=== PATIENT | female | born 1985 | race Caucasian/White ===

== ENCOUNTER 2017-04-11 10:52 | Observation (INO) | payer SELFPAY ==
[~2017-04-11] VITALS: Ht 162.6 cm; Wt 53.5 kg
[~2017-04-11 10:52] MED LIST: FERR-63 PO; IBUP-1649 PO; MULT-1146 PO
[2017-04-11 12:10] LABS: CLARITY URINE CLEAR (CLEAR); COLOR URINE YELLOW (YELLOW); GLUCOSE URINE NEGATIVE (NEGATIVE); KETONES URINE NEGATIVE (NEGATIVE); LEUKOCYTE ESTERASE URINE NEGATIVE (NEGATIVE); NITRITE URINE NEGATIVE (NEGATIVE); OCCULT BLOOD URINE NEGATIVE (NEGATIVE); PH URINE 6.5 (4.5-8.0); PROTEIN URINE NEGATIVE (NEGATIVE)
== END 2017-04-11 13:00 | disposition home or self-care (01) ==
LOC: L&D 10:52
PROVIDERS: ADMIT Obstetrics & Gynecology; ATTEND Obstetrics & Gynecology
DX: O26.893 Other specified pregnancy related conditions, third trimester (principal); R39.198 Other difficulties with micturition; Z3A.37 37 weeks gestation of pregnancy
CPT/HCPCS: 81003; 99281; G0378

== ENCOUNTER 2020-05-08 11:12 | Emergency (ER) | payer SELFPAY ==
[~2020-05-08] VITALS: Ht 162.6 cm; Wt 48.0 kg
[~2020-05-08 11:12] MED LIST changes: -IBUP-1649 PO
[2020-05-08] MEDS: HYDROCODONE/ACETAMINOPHEN 5/325MG TABLET PO ONE (13:09)
[2020-05-08 14:12] VITALS: BP 118/78
== END 2020-05-08 14:13 | disposition home or self-care (01) ==
LOC: ER 11:12
DX: S20.211A Contusion of right front wall of thorax, initial encounter (principal); S43.491A Other sprain of right shoulder joint, initial encounter; Y08.89XA Assault by other specified means, initial encounter; Y93.89 Activity, other specified; Y92.89 Other specified places as the place of occurrence of the external cause; Y99.8 Other external cause status; Z98.890 Other specified postprocedural states
CPT/HCPCS: 71101; 73030; 93005; 99284

== ENCOUNTER 2020-09-12 15:25 | Emergency (ER) | payer SELFPAY ==
[~2020-09-12] VITALS: Ht 162.6 cm; Wt 59.0 kg
[2020-09-12] MEDS ORDERED: TETANUS, DIPHTHERIA, PERTUSSIS VAC/PF 0.5ML (>7YR OLD) IM ONE (16:15)
[2020-09-12] MEDS ORDERED: BACITRACIN ZINC OINT UDPKT TOP ONE (16:15)
[2020-09-12] MEDS ORDERED: LIDOCAINE HCL/PF 1% 10 MG/ML 5ML VIAL IJ ONE (16:15)
[2020-09-12] MEDS ORDERED: IBUPROFEN 400MG TABLET PO ONE (16:30)
[2020-09-12] MEDS ORDERED: IBUP-2028 MT (17:53)
[2020-09-12 18:34] VITALS: BP 118/80
== END 2020-09-12 18:37 | disposition home or self-care (01) ==
LOC: ER 15:54
DX: S61.211A Laceration without foreign body of left index finger without damage to nail, initial encounter (principal); W26.8XXA Contact with other sharp object(s), not elsewhere classified, initial encounter; Y93.89 Activity, other specified; Y92.89 Other specified places as the place of occurrence of the external cause; Z23 Encounter for immunization
CPT/HCPCS: 12001; 90471; 90715; 99283; J3490

== ENCOUNTER 2020-09-14 11:28 | Emergency (ER) | payer SELFPAY ==
[~2020-09-14] VITALS: Ht 162.6 cm; Wt 53.0 kg
[~2020-09-14 11:28] MED LIST changes: +IBUP-2028 MT
[2020-09-14 12:52] VITALS: BP 115/69
== END 2020-09-14 12:52 | disposition home or self-care (01) ==
LOC: ER 12:00
DX: Z48.00 Encounter for change or removal of nonsurgical wound dressing (principal)
CPT/HCPCS: 99281

== ENCOUNTER 2021-05-17 12:30 | Emergency (ER) | payer MEDICAID ==
[~2021-05-17] VITALS: Ht 162.6 cm; Wt 51.0 kg
[2021-05-17 12:40] VITALS: BP 117/79
[2021-05-17 13:26] LABS: CHLORIDE 108 mEq/L (98-107)
[2021-05-17 13:27] LABS: BASOPHILS % 0.9 % (0.0-2.0); EOSINOPHILS % 1.6 % (0.0-5.0); HEMATOCRIT. 37.2 % (36.0-48.0); HEMOGLOBIN. 12.3 g/dL (12.0-16.0); LYMPHOCYTES % 25.6 % (20.0-50.0); MEAN CORPUSCULAR HEMOGLOBIN 30.2 pg (28.0-32.0); MEAN CORPUSCULAR VOLUME 91.3 fL (81.0-99.0); MEAN PLATELET VOLUME 7.1 fl (7.4-10.4); MONOCYTES % 6.3 % (2.0-8.0); NEUTROPHILS % 65.6 % (40.0-76.0); PLATELET 386 x1000/uL (130-400); RED BLOOD CELL COUNT 4.08 mill/uL (4.2-5.4); RED CELL DISTRIBUTION WIDTH 13.6 % (11.6-14.6)
[2021-05-17 16:50] LABS: CLARITY URINE CLOUDY (CLEAR); COLOR URINE YELLOW (YELLOW); KETONES URINE NEGATIVE (NEGATIVE); LEUKOCYTE ESTERASE URINE 2+ (NEGATIVE); NITRITE URINE POSITIVE (NEGATIVE); OCCULT BLOOD URINE NEGATIVE (NEGATIVE); PROTEIN URINE NEGATIVE (NEGATIVE); SPECIFIC GRAVITY URINE 1.017 (1.005-1.030); UROBILINOGEN URINE 0.2 E.U./dL (0.2-1.0)
== END 2021-05-17 16:31 | disposition left against medical advice (07) ==
LOC: ER 12:30
DX: R55 Syncope and collapse (principal); R41.3 Other amnesia
CPT/HCPCS: 36415; 71045; 80053; 81003; 82962; 85025; 93005; 99285

== ENCOUNTER 2021-06-03 01:53 | Inpatient (IN) | payer MEDICAID ==
[~2021-06-03] VITALS: Ht 162.6 cm; Wt 51.3 kg
[2021-06-03] MEDS ORDERED: KETOROLAC 30MG/ML VIAL IV STA (02:47)
[2021-06-03] MEDS ORDERED: ONDANSETRON HCL 4MG/2ML INJ IV STA ×2 (02:47→03:43)
[2021-06-03 03:13] LABS: CLARITY URINE TURBID (CLEAR); COLOR URINE YELLOW (YELLOW); KETONES URINE 1+ (NEGATIVE); LEUKOCYTE ESTERASE URINE 3+ (NEGATIVE); NITRITE URINE NEGATIVE (NEGATIVE); OCCULT BLOOD URINE 1+ (NEGATIVE); PROTEIN URINE 1+ (NEGATIVE); SPECIFIC GRAVITY URINE 1.026 (1.005-1.030)
[2021-06-03] MEDS ORDERED: MORPHINE SULFATE 4 MG/ML CPJ (NOT FOR IM USE) IV STA (03:43)
[2021-06-03] MEDS ORDERED: SODIUM CHLORIDE 0.9% 1,000 ML IV ONE (03:45)
[2021-06-03 03:56] LABS: CHLORIDE 107 mEq/L (98-107)
[2021-06-03 03:58] LABS: BASOPHILS % 0.2 % (0.0-2.0); EOSINOPHILS % 0.4 % (0.0-5.0); HEMATOCRIT. 35.9 % (36.0-48.0); HEMOGLOBIN. 12.4 g/dL (12.0-16.0); LYMPHOCYTES % 11.3 % (20.0-50.0); MEAN CORPUSCULAR VOLUME 90.3 fL (81.0-99.0); MEAN PLATELET VOLUME 6.9 fl (7.4-10.4); MONOCYTES % 0.4 % (2.0-8.0); NEUTROPHILS % 87.7 % (40.0-76.0); PLATELET 269 x1000/uL (130-400); RED BLOOD CELL COUNT 3.98 mill/uL (4.2-5.4); RED CELL DISTRIBUTION WIDTH 13.3 % (11.6-14.6)
[2021-06-03 03:59] LABS: ETHANOL BLOOD < 10 mg/dL
[2021-06-03 04:19] LABS: HCG SCREEN NEGATIVE
[2021-06-03] MEDS ORDERED: CEFTRIAXONE 1 G PREMIX 50 ML IV NR (06:00)
[2021-06-03] MEDS ORDERED: CEFTRIAXONE 1 G PREMIX 50 ML IV SCH (09:45)
[2021-06-03] MEDS ORDERED: ONDANSETRON HCL 4MG/2ML INJ IV PRN (09:45)
[2021-06-03] MEDS: KETOROLAC 30MG/ML VIAL IV PRN ×2 (11:14→18:46)
[2021-06-03] MEDS ORDERED: SODIUM CHLORIDE 0.9% 500 ML IV ONE (12:15)
[2021-06-03] MEDS: ACETAMINOPHEN 325MG TABLET PO PRN (15:04)
[2021-06-03 17:43] VITALS: BP 93/53
[2021-06-03 20:00] VITALS: BP 84/53
[2021-06-03] MEDS: TAMSULOSIN HCL 0.4MG SR CAPSULE PO SCH (20:40)
[2021-06-04] MEDS: KETOROLAC 30MG/ML VIAL IV PRN ×3 (02:23→22:41)
[2021-06-04 03:00] VITALS: BP 99/63
[2021-06-04] MEDS ORDERED: CEFTRIAXONE 1,000 MG in DEXTROSE 5% WATER 50 ML IV SCH (06:00)
[2021-06-04 08:00] VITALS: BP 92/49
[2021-06-04] MEDS: CEFTRIAXONE 1,000 MG in DEXTROSE 5% WATER 50 ML IV SCH (08:54)
[2021-06-04] MEDS: ACETAMINOPHEN 325MG TABLET PO PRN (08:55)
[2021-06-04] MEDS ORDERED: INFLUENZA VACCINE 05/PF 0.5 ML SYRINGE IM ONE (09:00)
[2021-06-04 09:20] LABS: *BARBITURATES SCREEN URINE NEGATIVE (NEGATIVE); *BENZODIAZEPINES SCREEN URINE NEGATIVE (NEGATIVE); *COCAINE SCREEN URINE NEGATIVE (NEGATIVE); METHADONE URINE SCREEN NEGATIVE (NEGATIVE)
[2021-06-04 09:21] LABS: CANNABINOID URINE SCREEN NEGATIVE (NEGATIVE); OPIATES URINE SCREEN NEGATIVE (NEGATIVE); PHENCYCLIDINE URINE SCREEN NEGATIVE (NEGATIVE)
[2021-06-04 09:33] LABS: *AMPHETAMINES SCREEN URINE PRESUMTIVE POSITIVE (NEGATIVE)
[2021-06-04 12:00] VITALS: BP 87/60
[2021-06-04] MEDS: SODIUM CHLORIDE 0.45% 1,000 ML IV SCH (13:53)
[2021-06-04] MEDS ORDERED: NALOXONE HCL 0.4MG/ML VIAL IV PRN (14:15)
[2021-06-04] MEDS ORDERED: HYDROCODONE/ACETAMINOPHEN 5/325MG TABLET PO PRN (14:15)
[2021-06-04 20:00] VITALS: BP 87/50
[2021-06-04] MEDS: TAMSULOSIN HCL 0.4MG SR CAPSULE PO SCH (21:14)
[2021-06-05] VITALS: BP 94/52
[2021-06-05] MEDS: SODIUM CHLORIDE 0.45% 1,000 ML IV SCH ×2 (03:42→13:06)
[2021-06-05 04:00] VITALS: BP 86/51
[2021-06-05 08:00] VITALS: BP 91/42
[2021-06-05] MEDS: CEFTRIAXONE 1,000 MG in DEXTROSE 5% WATER 50 ML IV SCH (09:08)
[2021-06-05] MEDS: ACETAMINOPHEN 325MG TABLET PO PRN ×2 (09:38→17:01)
[2021-06-05 12:00] VITALS: BP 94/49
[2021-06-05 16:00] VITALS: BP 111/81
[2021-06-05 16:27] VITALS: BP 94/49
[2021-06-05 16:41] LABS: BASOPHILS % 0.3 % (0.0-2.0); EOSINOPHILS % 1.4 % (0.0-5.0); HEMATOCRIT. 30.1 % (36.0-48.0); HEMOGLOBIN. 10.2 g/dL (12.0-16.0); LYMPHOCYTES % 11.7 % (20.0-50.0); MEAN CORPUSCULAR HEMOGLOBIN 30.3 pg (28.0-32.0); MEAN CORPUSCULAR VOLUME 89.2 fL (81.0-99.0); MEAN PLATELET VOLUME 7.9 fl (7.4-10.4); MONOCYTES % 6.5 % (2.0-8.0); NEUTROPHILS % 80.1 % (40.0-76.0); PLATELET 163 x1000/uL (130-400); RED BLOOD CELL COUNT 3.38 mill/uL (4.2-5.4); RED CELL DISTRIBUTION WIDTH 13.6 % (11.6-14.6)
[2021-06-05 16:53] LABS: CHLORIDE 109 mEq/L (98-107)
== END 2021-06-05 17:43 | disposition home or self-care (01) | DRG 720 ==
LOC: ER 01:53 → 6EST 05:54 → EDBEDREQSVC 14:49 → ENRESERV 15:05
PROVIDERS: ADMIT Internal Medicine; ATTEND Internal Medicine
DX: A41.51 Sepsis due to Escherichia coli [E. coli] (principal); N13.6 Pyonephrosis; D72.819 Decreased white blood cell count, unspecified; F15.90 Other stimulant use, unspecified, uncomplicated; R74.01 Elevation of levels of liver transaminase levels; Z71.51 Drug abuse counseling and surveillance of drug abuser
CPT/HCPCS: 36415; 74176; 80048; 80053; 80305; 80320; 81003; 83605; 84145; 84703; 85025; 87077; 87186; 99285; J0696; J1885; J2270; J2405; J7030; J7040; J7060; G0480

== ENCOUNTER 2024-07-08 12:41 | Emergency (ER) | payer MEDICAID ==
[~2024-07-08] VITALS: Ht 162.6 cm; Wt 54.0 kg
[2024-07-08 12:51] VITALS: BP 115/69; PULSE 87; RESP 16; TEMP 36.5; O2SAT 99
[2024-07-08] MEDS ORDERED: CEPH500C2 MT (13:57)
[2024-07-08] MEDS ORDERED: SULF1TAB48 MT (13:57)
[2024-07-08] MEDS ORDERED: IBUP-2029 MT (13:57)
== END 2024-07-08 14:34 | disposition home or self-care (01) ==
LOC: ER 12:41
DX: N61.0 Mastitis without abscess (principal); I25.10 Atherosclerotic heart disease of native coronary artery without angina pectoris; Z98.890 Other specified postprocedural states
CPT/HCPCS: 99283

== ENCOUNTER 2024-10-21 12:32 | Emergency (ER) | payer MEDICAID ==
[~2024-10-21] VITALS: Ht 165.1 cm; Wt 65.0 kg
[~2024-10-21 12:32] MED LIST changes: +CEPH500C2 MT; +IBUP-2029 MT; +SULF1TAB48 MT
[2024-10-21 12:35] VITALS: O2SAT 99
[2024-10-21 14:48] LABS: CLARITY URINE CLEAR (CLEAR); COLOR URINE YELLOW (YELLOW); GLUCOSE URINE NEGATIVE (NEGATIVE); KETONES URINE NEGATIVE (NEGATIVE); LEUKOCYTE ESTERASE URINE 1+ (NEGATIVE); NITRITE URINE NEGATIVE (NEGATIVE); OCCULT BLOOD URINE 3+ (NEGATIVE); PROTEIN URINE TRACE (NEGATIVE); SPECIFIC GRAVITY URINE 1.026 (1.005-1.030)
[2024-10-21 14:53] LABS: BASOPHILS % 0.8 % (0.0-2.0); EOSINOPHILS % 1.6 % (0.0-5.0); HEMOGLOBIN. 12.3 g/dL (12.0-16.0); LYMPHOCYTES % 29.6 % (20.0-50.0); MEAN CORPUSCULAR HEMOGLOBIN 31.9 pg (28.0-32.0); MEAN CORPUSCULAR HGB CONC 34.1 g/dL (31.0-37.0); MEAN CORPUSCULAR VOLUME 93.6 fL (81.0-99.0); MONOCYTES % 7.8 % (2.0-8.0); NEUTROPHILS % 60.2 % (40.0-76.0); PLATELET 340 x1000/uL (130-400); RED BLOOD CELL COUNT 3.84 mill/uL (4.2-5.4); WHITE BLOOD COUNT 7.1 x1000/uL (4.5-11.0)
[2024-10-21 15:01] LABS: CARBON DIOXIDE 26 mEq/L (21-32); CHLORIDE 107 mEq/L (98-107); POTASSIUM 3.6 mEq/L (3.5-5.1); SODIUM 138 mEq/L (136-145)
[2024-10-21 15:02] LABS: CALCIUM 8.4 mg/dL (8.7-10.4)
[2024-10-21 15:03] LABS: INR 0.9; PROTHROMBIN TIME 9.7 sec (9.6-11.0)
[2024-10-21 15:03] LABS: BACTERIA URINE 2+; SQUAMOUS EPITHELIAL CELL URINE 2+ /lpf (RARE/1+); WBC URINE 25-50 /hpf (0-2); YEAST URINE NONE SEEN
[2024-10-21 15:04] LABS: *AMPHETAMINES SCREEN URINE NEGATIVE (NEGATIVE); *BARBITURATES SCREEN URINE NEGATIVE (NEGATIVE); *BENZODIAZEPINES SCREEN URINE NEGATIVE (NEGATIVE); *COCAINE SCREEN URINE NEGATIVE (NEGATIVE)
[2024-10-21 15:05] LABS: CANNABINOID URINE SCREEN NEGATIVE (NEGATIVE); ECSTASY MDMA SCREEN URINE NEGATIVE (NEGATIVE); METHADONE URINE SCREEN NEGATIVE (NEGATIVE); OPIATES URINE SCREEN NEGATIVE (NEGATIVE); PHENCYCLIDINE URINE SCREEN NEGATIVE (NEGATIVE)
[2024-10-21 15:07] LABS: CREATININE 0.5 mg/dL (0.6-1.0); GLUCOSE 98 mg/dL (70-105); UREA NITROGEN BLOOD 12 mg/dL (9-23)
[2024-10-21 15:15] LABS: HCG SCREEN NEGATIVE
[2024-10-21] MEDS: KETOROLAC 30MG/ML VIAL IM ONE (16:09)
[2024-10-21] MEDS ORDERED: LIDO-53 TP (16:16)
[2024-10-21] MEDS ORDERED: GABA-529 MT (16:16)
[2024-10-21 16:31] VITALS: BP 113/64; PULSE 90; RESP 18; TEMP 36.9; O2SAT 99
== END 2024-10-21 16:32 | disposition home or self-care (01) ==
LOC: ER 12:32
DX: M79.641 Pain in right hand (principal); M79.642 Pain in left hand; Z98.890 Other specified postprocedural states; Z79.899 Other long term (current) drug therapy
CPT/HCPCS: 99284; 80305; 80048; 81003; 81025; 84703; 83690; 85025; 85610; 87086; 87186; 87077; 36415; 73130; 96372; J1885